=== PATIENT | male | born 1990 | race African-American/Black ===

== ENCOUNTER 2020-09-01 11:31 | Emergency (ER) | payer BC ==
[~2020-09-01] VITALS: Ht 167.6 cm; Wt 59.0 kg
[2020-09-01 12:05] VITALS: BP 135/82
== END 2020-09-01 12:06 | disposition home or self-care (01) ==
LOC: M.ERS 11:31
DX: B34.9 Viral infection, unspecified (principal); Z20.822 Contact with and (suspected) exposure to COVID-19; Z88.6 Allergy status to analgesic agent

== ENCOUNTER 2020-10-01 08:53 | Emergency (ER) | payer BC ==
[~2020-10-01] VITALS: Ht 167.6 cm; Wt 59.0 kg
[2020-10-01] MEDS ORDERED: AUGMENTIN 875-1 EACH PO (09:53)
[2020-10-01] MEDS ORDERED: HYDROCODON-ACE1 EAC7 PO (09:53)
[2020-10-01 10:07] VITALS: BP 112/73
== END 2020-10-01 10:08 | disposition home or self-care (01) ==
LOC: M.ERS 08:53
DX: S61.251A Open bite of left index finger without damage to nail, initial encounter (principal); Z88.6 Allergy status to analgesic agent; Z88.8 Allergy status to other drugs, medicaments and biological substances; W54.0XXA Bitten by dog, initial encounter; Y93.89 Activity, other specified; Y92.89 Other specified places as the place of occurrence of the external cause; Y99.8 Other external cause status

== ENCOUNTER 2020-10-06 12:29 | Emergency (ER) | payer BC ==
[~2020-10-06] VITALS: Ht 167.6 cm; Wt 59.0 kg
[~2020-10-06 12:29] MED LIST: AUGMENTIN 875-1 EACH PO; HYDROCODON-ACE1 EAC7 PO
[2020-10-06 12:48] VITALS: BP 125/85
== END 2020-10-06 12:50 | disposition home or self-care (01) ==
LOC: M.ERS 12:29
DX: R51.9 Headache, unspecified (principal); Z88.6 Allergy status to analgesic agent; Z88.8 Allergy status to other drugs, medicaments and biological substances

== ENCOUNTER 2020-10-19 15:44 | Emergency (ER) | payer BC ==
[~2020-10-19] VITALS: Ht 167.6 cm; Wt 59.0 kg
[2020-10-19] MEDS ORDERED: IBUPROFEN 800800 MG PO (15:59)
[2020-10-19] MEDS ORDERED: AMOXICILLIN 50500 MG PO (15:59)
[2020-10-19 16:14] VITALS: BP 102/63
== END 2020-10-19 16:14 | disposition home or self-care (01) ==
LOC: M.ERS 15:44
DX: K02.9 Dental caries, unspecified (principal); Z88.6 Allergy status to analgesic agent; Z88.8 Allergy status to other drugs, medicaments and biological substances

== ENCOUNTER 2021-02-01 08:40 | Emergency (ER) | payer BC ==
[~2021-02-01] VITALS: Ht 320 cm; Wt 59.0 kg
[~2021-02-01 08:40] MED LIST changes: +AMOXICILLIN 50500 MG PO; +IBUPROFEN 800800 MG PO
[2021-02-01 10:00] VITALS: BP 125/71
== END 2021-02-01 10:01 | disposition home or self-care (01) ==
LOC: M.ERS 08:40
DX: Z71.1 Person with feared health complaint in whom no diagnosis is made (principal); Z88.8 Allergy status to other drugs, medicaments and biological substances; Z88.5 Allergy status to narcotic agent; Z88.6 Allergy status to analgesic agent